=== PATIENT | female | born 1945 | race Two or more races ===

== ENCOUNTER 2023-06-06 16:42 | Outpatient (REF) | payer OTHER, SELFPAY ==
[2023-06-06 18:37] LABS: Vitamin B12 797 pg/mL (200-900)
== END 2023-06-06 16:43 | disposition home or self-care (01) ==
LOC: HO.LAB 16:42
PROVIDERS: PCP Internal Medicine; Visit Provider Psychiatry & Neurology Neurology
DX: G30.9 Alzheimer's disease, unspecified (principal)
CPT/HCPCS: 36415; 82607

== ENCOUNTER 2023-07-10 17:40 | Outpatient (REF) | payer OTHER, SELFPAY ==
--- NOTE | ~2023-07-10 | MR_ITS ---
EXAMINATION: MR BRAIN WITHOUT CONTRAST CLINICAL INFORMATION: Dementia COMPARISON: None TECHNIQUE: Multiplanar multisequence MR imaging of the brain was obtained without intravenous contrast. FINDINGS: There is no acute infarct on diffusion-weighted imaging. There is no intracranial hemorrhage on iron-sensitive imaging. No midline shift or herniation. Scattered periventricular and deep white matter T2 FLAIR hyperintensities consistent with mild underlying microangiopathy. There are thin bifrontal CSF signal intensity subdural collections measuring up to 5 mm in thickness with minimal mass effect on the frontal lobes, compatible with subdural hygromas. No hydrocephalus. The ventricles are normal in morphology and size. The major flow voids at the skull base are preserved. The midline structures are normal. The cerebellar tonsils are normally positioned. The craniocervical junction is normal. Marrow signal is within normal limits. The visualized soft tissues are without significant abnormality. Small right mastoid fluid MR/MR head/brain wo con IMPRESSION: 1. 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 2. Mild chronic white matter microangiopathy.
== END 2023-07-10 17:41 | disposition home or self-care (01) ==
LOC: HO.MRI 17:40
PROVIDERS: Visit Provider Psychiatry & Neurology Neurology
DX: G30.9 Alzheimer's disease, unspecified (principal)
CPT/HCPCS: 70551

== ENCOUNTER 2025-01-29 14:39 | Outpatient (AMB) | payer OTHER, SELFPAY ==
--- NOTE | 2025-01-29 15:27 | MHC.OFFVIS ---
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 She is presenting with sleep disturbances and behavioral hyperactivity. She has been experiencing frequent awakenings at night, accompanied by nightmares, which seem related to her daytime exposure to stimulating content such as television and phone use. Despite these disturbances, sleep is occasionally described as okay. The patient has shown increased hyperactivity during the day, when alone, engaging in animated activities, a behavioral change not previously observed. The patient is currently on Quetiapine at night, with the option to increase to morning dosing being considered to manage daytime hyperactivity. An EEG is being planned to further evaluate and monitor any underlying issues. However, transportation difficulties limit the frequency of visits. [facility] Medical History (Updated 01/29/25 @ 15:34 by Lia Cazares MD) MCI (mild cognitive impairment) Dementia Insomnia Paranoia Anxiety Depression Review of Systems Const Details: - Sleep: Reports disturbances with frequent awakenings, associated nightmares. - Behavioral: Reports increased hyperactivity during daytime hours. Physical Exam Neuro Other: Mental Status: Alert and oriented to person, place, and time. Normal attention. Normal spontaneous speech, fluency, and comprehension. Cranial Nerves: CN II: Visual shelley full to confrontation, visual acuity intact. CN III, IV, : Pupils equal, round, reactive to light and accommodation. Extraocular movements are normal. CN V: Facial sensation is normal. CN VII: Facial movements symmetrical. CN VIII: Hearing intact to bedside conversation is normal. CN IX, X: Palate elevates symmetrically. CN XI: Shoulder shrug and head turn symmetrical. CN XII: Tongue midline without atrophy or fasciculations. Extrapyramidal: Full facial expressions and blinking. No rigidity. Movements are appropriate with no tremor or abnormality. Speech: Normal; no dysarthria or tremor. Assessment & Plan Assessment & Plan (1) Dementia with behavioral disturbance: Comment: [place] brain [place] [facility] [place]: mod cortical atrophy. Code(s): F03.918 - Unspecified dementia, unspecified severity, with other behavioral disturbance Category: Medical Plan Impression: Dementia with behavioral symptoms Rec: a: Sertaline 25mg one in am b: Quetiapine 25mg bid Medications: New quetiapine 25 mg PO BID 180 tabs 1RF sertraline 25 mg PO DAILY 90 tabs 1RF Coding Level of Care Code Est Pt Level 4 (45173) Diagnoses Dementia with behavioral disturbance F03.918
--- OUTSIDE RECORDS SUMMARY | 2025-01-29 18:29 | XMS_ITS | Clinical Summary ---
Author Organization [facility] [employer] [facility] [facility] Address [address] [place] [address] Care Team Providers Care Neuroscience Director Na Name Role Phone Pcp, No Primary Care Provider [phone] Immunizations Immunization Administration Dates Next Due Fluzone Trivalent High Dose (65+ years) 02/05/20 Social History Tobacco Use Types Packs/Day Years Used Date Smoking Tobacco: Never Assessed Comments Unknown Sex and Gender Information Value Date Recorded Sex Assigned at Not on file Legal Sex Female 10:24 PM EDT Gender Identity Not on file Sexual Orientation Not on file Plan of Treatment Health Maintenance Due Date Last Done Comments Depression: Screening Annual ly using PHQ-2/9 in Adults 18 yrs or above (or HM Modifier)([facility]) 07/18/1961 SDOH Screening Reminder: Bell ually for all adults ([facility]) 07/18/1961 Tobacco Smoking Cessation: i n Adults excluding Women: Behavioral and Pharmacotherapy Interventions ([facility]) 07/18/1961 DTaP/Tdap/Td Vaccines ([facility]) (1 - Tdap) 07/18/1962 Pneumococcal Vaccination Scr eening: Patients 50+ yrs of age ([facility]) (1 of 1 - PCV) 07/18/1993 Zoster/Shingles Vaccine Seri es Screening: Adults aged 18+ yrs (or HM Modifiers)([facility]) (1 of 2) 07/18/1993 Osteoporosis Screening to Pr event Fractures: Women aged 65 years+ ([facility]) 07/18/2008 RSV Vaccines (1 - 1-dose 75+ series) 07/18/2018 Flu Vaccination: Ages 65+: Y early High Dose Recommended (or Modifier)([facility]) 11/14/2024 02/04/2021 COVID-19 Vaccine Screening: Initial Series and Booster Status ([facility]) ( - 2023- season) 2024 [employer] Devices Not on file Insurance [facility] Care Teams Neuroscience Director Na Relationship Specialty Start Date End Date Pcp, No PCP - General Family Medicine 02/04/21
== END 2025-01-29 15:34 | disposition home or self-care (01) ==
LOC: HO.HSM 14:40
PROVIDERS: PCP Internal Medicine; Referring Provider Internal Medicine; Visit Provider Psychiatry & Neurology Neurology
DX: F03.918 Unspecified dementia, unspecified severity, with other behavioral disturbance (principal)
CPT/HCPCS: 99214

== ENCOUNTER → 2025-01-29 14:39 | Outpatient (BNVA) | payer OTHER, SELFPAY | PROVIDERS: PCP Internal Medicine; Referring Provider Internal Medicine; Visit Provider Psychiatry & Neurology Neurology | DX: F03.918 Unspecified dementia, unspecified severity, with other behavioral disturbance (principal) | CPT/HCPCS: 99212 ==